=== PATIENT | male | born 1955 | race Caucasian/White ===

== ENCOUNTER 2019-05-28 07:19 | Emergency (ER) | payer MEDICAID, OTHER ==
[~2019-05-28] VITALS: Ht 177.8 cm; Wt 101.0 kg
[~2019-05-28 07:19] MED LIST: ALBU8.5H8 INH; CYCL-1 PO; HYDR-4383 PO
[2019-05-28 07:34] VITALS: BP 132/31
[2019-05-28] MEDS ORDERED: proparacaine 0.5% ophthalmic drops 15ml EACHEYE ONE (08:00)
[2019-05-28] MEDS ORDERED: SULF5DRO EACHEYE (08:14)
[2019-05-28] MEDS ORDERED: AZEL6DRO6 EACHEYE (08:14)
== END 2019-05-28 08:30 | disposition home or self-care (01) ==
LOC: ER 07:19
DX: H10.9 Unspecified conjunctivitis (principal)
CPT/HCPCS: 99283